=== PATIENT | female | born 1980 | race Caucasian/White ===

== ENCOUNTER 2023-06-28 15:57 | Emergency (ER) | payer MEDICAID ==
[~2023-06-28] VITALS: Ht 165.1 cm; Wt 65.0 kg
[2023-06-28 16:01] VITALS: O2SAT 100
[2023-06-28] MEDS ORDERED: DIPHENHYDRAMINE 50MG/ML VIAL IV ONE (16:30)
[2023-06-28] MEDS ORDERED: METHYLPREDNISOLONE SOD SUCC 40MG/ML (ACT-O-VIAL) IV ONE (16:30)
[2023-06-28] MEDS ORDERED: FAMOTIDINE 20MG/2ML VIAL IV ONE (16:30)
[2023-06-28 16:34] LABS: BASOPHILS % 0.1 % (0.0-2.0); EOSINOPHILS % 0.4 % (0.0-5.0); HEMATOCRIT. 50.1 % (36.0-48.0); HEMOGLOBIN. 16.8 g/dL (12.0-16.0); LYMPHOCYTES % 33.1 % (20.0-50.0); MEAN CORPUSCULAR HEMOGLOBIN 28.7 pg (28.0-32.0); MEAN CORPUSCULAR HGB CONC 33.4 g/dL (31.0-37.0); MEAN CORPUSCULAR VOLUME 85.9 fL (81.0-99.0); MEAN PLATELET VOLUME 8.3 fl (7.4-10.4); MONOCYTES % 2.3 % (2.0-8.0); NEUTROPHILS % 64.1 % (40.0-76.0); PLATELET 405 x1000/uL (130-400); RED BLOOD CELL COUNT 5.84 mill/uL (4.2-5.4); RED CELL DISTRIBUTION WIDTH 13.9 % (11.6-14.6); WHITE BLOOD COUNT 21.5 x1000/uL (4.5-11.0)
[2023-06-28 16:45] LABS: ALANINE AMINOTRANSFERASE 24 IU/L (10-49); ALBUMIN 3.9 g/dL (3.2-4.8); ASPARTATE AMINOTRANSFERASE 31 IU/L (<34); BILIRUBIN TOTAL 0.3 mg/dL (0.1-1.0); CALCIUM 8.4 mg/dL (8.7-10.4); CARBON DIOXIDE 21 mEq/L (21-32); CHLORIDE 104 mEq/L (98-107); CREATININE 1.1 mg/dL (0.6-1.0); ETHANOL BLOOD < 10 mg/dL (<10); GLUCOSE 285 mg/dL (70-105); POTASSIUM 3.5 mEq/L (3.5-5.1); PROTEIN TOTAL 7.3 g/dL (6.0-8.3); SODIUM 137 mEq/L (136-145); UREA NITROGEN BLOOD 8 mg/dL (9-23)
[2023-06-28 17:02] LABS: HCG SCREEN NEGATIVE
[2023-06-28] MEDS: FAMOTIDINE 20MG/2ML VIAL IV NR (18:16)
[2023-06-28] MEDS: METHYLPREDNISOLONE SOD SUCC 40MG/ML (ACT-O-VIAL) IV NR (18:16)
[2023-06-28] MEDS: DIPHENHYDRAMINE 50MG/ML VIAL IV NR (18:16)
[2023-06-28 18:27] VITALS: TEMP 98.3
[2023-06-28] MEDS ORDERED: ONDA4TAB11 PO (20:33)
[2023-06-28] MEDS ORDERED: POLY17PO3 MT (20:33)
[2023-06-28 21:03] VITALS: BP 117/63; PULSE 96; RESP 18
== END 2023-06-28 21:04 | disposition home or self-care (01) ==
LOC: ER 15:57 → CANBEDREQ 06-30 09:51
DX: R10.9 Unspecified abdominal pain (principal); K59.00 Constipation, unspecified
CPT/HCPCS: 80053; 80320; 84703; 83690; 85025; 36415; 71045; 74176; 96374; 96375; 99285; J1200; J3490; J2920; Z7610; G0480